=== PATIENT | male | born 1985 | race Caucasian/White ===

== ENCOUNTER 2023-02-27 12:10 | Emergency (ER) | payer OTHER ==
[~2023-02-27] VITALS: Ht 185.4 cm; Wt 122.4 kg
[2023-02-27 12:26] VITALS: BP 119/77
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
[2023-02-28] MEDS ORDERED: OFLOXACIN5 ML OTIC (22:50)
== END 2023-02-27 12:26 | disposition left against medical advice (07) ==
LOC: ED 12:10
DX: S01.01XA Laceration without foreign body of scalp, initial encounter (principal); Z53.29 Procedure and treatment not carried out because of patient's decision for other reasons; Y04.8XXA Assault by other bodily force, initial encounter
CPT/HCPCS: 99284

== ENCOUNTER 2023-03-01 15:43 | Emergency (ER) | payer MEDICAID ==
[~2023-03-01] VITALS: Ht 185.4 cm; Wt 120.0 kg
[~2023-03-01 15:43] MED LIST: OFLOXACIN5 ML OTIC
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
[2023-03-01 16:15] VITALS: BP 120/67
== END 2023-03-01 16:15 | disposition home or self-care (01) ==
LOC: ED 15:43
DX: S90.822A Blister (nonthermal), left foot, initial encounter (principal); S90.821A Blister (nonthermal), right foot, initial encounter; X58.XXXA Exposure to other specified factors, initial encounter; Z59.00 Homelessness unspecified; F43.10 Post-traumatic stress disorder, unspecified; J45.909 Unspecified asthma, uncomplicated; F90.9 Attention-deficit hyperactivity disorder, unspecified type; Z79.899 Other long term (current) drug therapy
CPT/HCPCS: 99283